=== PATIENT | female | born 1965 | race Two or more races ===

== ENCOUNTER 2019-01-01 01:22 | Emergency (ER) | payer OTHER ==
[2019-01-01] MEDS ORDERED: Ketorolac 30 MG/ML SDV ONE (01:54)
[2019-01-01] MEDS ORDERED: HYDROmorphone 1 MG/ML Syringe ONE (01:54)
[2019-01-01] MEDS ORDERED: Ondansetron 4 MG/2 ML SDV ONE (01:54)
--- NOTE | 2019-01-01 01:55 | EDM.PDOC ---
ED HPI GENERAL MEDICAL PROBLEM - General Chief Complaint: Abdominal Pain Stated Complaint: GALL BLADDER PAIN Time Seen by Provider: 01/01/19 01:49 - History of Present Illness INITIAL COMMENTS - FREE TEXT/NARRATIVE: HISTORY AND PHYSICAL: History of present illness: Patient 53-year-old [place] female with history of cholelithiasis and biliary colic presents with a concern of right upper quadrant pain after meal tonight. She's been diagnosed prior with ultrasound in [place] and was told that she would need surgery. She denies fever chills states pain is improved since arrival Review of systems: As per history of present illness and below otherwise all systems reviewed and negative. Past medical history: As per history of present illness and as reviewed below otherwise noncontributory. Surgical history: As per history of present illness and as reviewed below otherwise noncontributory. Social history: No reported history of drug or alcohol abuse. Family history: As per history of present illness and as reviewed below otherwise noncontributory. Physical exam: HEENT: Atraumatic, normocephalic, pupils reactive, negative for conjunctival pallor or scleral icterus, mucous membranes moist, throat clear, neck supple, nontender, trachea midline. Lungs: Clear to auscultation, breath sounds equal bilaterally, chest nontender. Heart: S1S2, regular, negative for clicks, rubs, or JVD. Abdomen: Soft, nondistended, tenderness in the right upper quadrant to deep palpation no rebound or guarding. Negative for masses or hepatosplenomegaly. Negative for costovertebral tenderness. Pelvis: Stable nontender. Genitourinary: Deferred. Rectal: Deferred. Extremities: Atraumatic, negative for cords or calf pain. Neurovascular unremarkable. Neuro: Awake, alert, oriented. Cranial nerves II through XII unremarkable. Cerebellum unremarkable. Motor and sensory unremarkable throughout. Exam nonfocal. Diagnostics: CBC CMP UA ultrasound right upper quadrant Therapeutics: Saline 1 L bolus Toradol 30 mg IV Zofran 4 mg IV Dilaudid 1 mg IV when necessary Impression: #1 cholelithiasis with biliary colic Definitive disposition and diagnosis as appropriate pending reevaluation and review of above. Right Upper Abdomen Pain Score (Numeric/FACES): 10 - Related Data Allergies Allergy/AdvReac Type Severity Reaction Status Date / Time No Known Allergies Allergy Verified 01/01/19 01:47 Home Meds: Home Meds . [No Known Home Meds] 01/01/19 [History] ED ROS GENERAL - Review of Systems Review Of Systems: ROS reveals no pertinent complaints other than HPI. ED EXAM, GENERAL - Physical Exam Exam: See Below (Dictation) Course - Vital Signs Last Recorded V/S: Last Vital Signs Temp 36.6 C 01/01/19 01:41 Pulse 98 01/01/19 01:41 Resp BP 131/95 H 01/01/19 01:41 Pulse Ox 97 01/01/19 01:41 - Orders/Labs/Meds Orders: Active Orders 24 hr Category Date Time Status HYDROmorphone [Dilaudid] Med 01/01/19 01:59 Active 1 mg IVPUSH Q1H PRN Saline Lock Insert [OM.PC] Stat Oth 01/01/19 01:59 Ordered Medication Orders Hydromorphone HCl (Dilaudid) 1 mg IVPUSH Q1H PRN PRN Reason: Pain Last Admin: 01/01/19 02:07 Dose: 1 mg Labs: Laboratory Tests 01/01/19 01/01/19 01/01/19 Range/Units 01:36 01:45 01:45 WBC 9.99 (4.0-11.0) K/uL RBC 4.31 (4.30-5.90) M/uL Hgb 13.4 (12.0-16.0) g/dL Hct 38.8 (36.0-46.0) % MCV 90.0 (80.0-98.0) fL MCH 31.1 (27.0-32.0) pg MCHC 34.5 (31.0-37.0) g/dL RDW Std Deviation 41.9 (28.0-62.0) fl RDW Coeff of Perri 13 (11.0-15.0) % Plt Count 288 (150-400) K/uL MPV 10.60 (7.40-12.00) fL Nucleated RBC % 0.0 /100WBC Nucleated RBCs # 0 K/uL Sodium 135 L (136-145) mmol/L Potassium 3.0 L (3.5-5.1) mmol/L Chloride 96 L (98-107) mmol/L Carbon Dioxide 25.2 (21.0-32.0) mmol/L BUN 10 (7.0-18.0) mg/dL Creatinine 1.1 H (0.6-1.0) mg/dL Est Cr Clr Drug Dosing TNP Estimated GFR (MDRD) 52.2 ml/min Glucose 110 H (74-106) mg/dL Calcium 9.1 (8.5-10.1) mg/dL Total Bilirubin 0.7 (0.2-1.0) mg/dL AST 20 (15-37) IU/L ALT 28 (14-63) IU/L Alkaline Phosphatase 103 (46-116) U/L Total Protein 8.4 H (6.4-8.2) g/dL Albumin 3.6 (3.4-5.0) g/dL Globulin 4.8 H (2.6-4.0) g/dL Albumin/Globulin Ratio 0.8 L (0.9-1.6) Urine Color YELLOW Urine Appearance SLT CLOUDY Urine pH 6.0 (5.0-8.0) Ur Specific [place] <= 1.005 (1.001-1.035) Urine Protein NEGATIVE (NEGATIVE) mg/dL Urine Glucose (UA) NEGATIVE (NEGATIVE) mg/dL Urine Ketones NEGATIVE (NEGATIVE) mg/dL Urine Occult Blood SMALL H (NEGATIVE) Urine Nitrite NEGATIVE (NEGATIVE) Urine Bilirubin NEGATIVE (NEGATIVE) Urine Urobilinogen 0.2 (<2.0) EU/dL Ur Leukocyte Esterase NEGATIVE (NEGATIVE) Urine RBC 1-3 (0-2/HPF) Urine WBC 0-2 (0-5/HPF) Ur Epithelial Cells FEW (NONE-FEW) Urine Bacteria RARE (NEGATIVE) Meds: Medications Generic Name Dose Route Start Last Admin Trade Name Freq PRN Reason Stop Dose Admin Hydromorphone HCl 1 mg 01/01/19 01:59 01/01/19 02:07 Dilaudid IVPUSH 1 mg Q1H PRN Administration Pain Discontinued Medications Generic Name Dose Route Start Last Admin Trade Name Freq PRN Reason Stop Dose Admin Hydromorphone HCl Confirm 01/01/19 01:54 Dilaudid Administered 01/01/19 01:55 Dose 1 mg .ROUTE .STK-MED ONE Sodium Chloride 1,000 mls @ 999 mls/hr 01/01/19 01:59 01/01/19 02:05 Normal Saline IV 01/01/19 02:59 999 mls/hr .Bolus ONE Administration Ketorolac Tromethamine Confirm 01/01/19 01:54 Toradol Administered 01/01/19 01:55 Dose 30 mg .ROUTE .STK-MED ONE Ketorolac Tromethamine 30 mg 01/01/19 01:59 01/01/19 02:04 Toradol IVPUSH 01/01/19 02:00 30 mg ONETIME ONE Administration Ondansetron HCl Confirm 01/01/19 01:54 Zofran Administered 01/01/19 01:55 Dose 4 mg .ROUTE .STK-MED ONE Ondansetron HCl 4 mg 01/01/19 01:59 01/01/19 02:05 Zofran IVPUSH 01/01/19 02:00 4 mg ONETIME ONE Administration Departure - Departure Time of Disposition: 03:43 Disposition: Home, Self-Care 01 Condition: Good Clinical Impression: Cholelithiasis, Biliary colic - Discharge Information Referrals: Nicolette Garzon NP [Primary Care Provider] - Forms: ED Department Discharge Additional Instructions: The following information is given to patients seen in the emergency department who are being discharged to home. This information is to outline your options for follow-up care. We provide all patients seen in our emergency department with a follow-up referral. The need for follow-up, as well as the timing and circumstances, are variable depending upon the specifics of your emergency department visit. If you don't have a primary care physician on staff, we will provide you with a referral. We always advise you to contact your personal physician following an emergency department visit to inform them of the circumstance of the visit and for follow-up with them and/or the need for any referrals to a consulting specialist. The emergency department will also refer you to a specialist when appropriate. This referral assures that you have the opportunity for followup care with a specialist. All of these measure are taken in an effort to provide you with optimal care, which includes your followup. Under all circumstances we always encourage you to contact your private physician who remains a resource for coordinating your care. When calling for followup care, please make the office aware that this follow-up is from your recent emergency room visit. If for any reason you are refused follow-up, please contact the [facility] emergency department at and asked to speak to the emergency department charge nurse. [facility] - General Surgery Professional Building [address] [place] [address], [address] [place] [address] Follow-up Gen. surgery of both call for appointment hydrocodone Zofran as prescribed dietary considerations as discussed and return as needed as discussed - My Orders Last 24 Hours: My Active Orders 01/01/19 01:59 HYDROmorphone [Dilaudid] 1 mg IVPUSH Q1H PRN Saline Lock Insert [OM.PC] Stat - Assessment/Plan Last 24 Hours: My Active Orders 01/01/19 01:59 HYDROmorphone [Dilaudid] 1 mg IVPUSH Q1H PRN Saline Lock Insert [OM.PC] Stat
[2019-01-01] MEDS ORDERED: Sodium Chloride 0.9% 1,000 ML IV ONE (01:59)
[2019-01-01] MEDS ORDERED: Ketorolac 30 MG/ML SDV IVPUSH ONE (01:59)
[2019-01-01] MEDS ORDERED: Ondansetron 4 MG/2 ML SDV IVPUSH ONE (01:59)
[2019-01-01] MEDS ORDERED: HYDROmorphone 1 MG/ML Syringe IVPUSH PRN (01:59)
[2019-01-01 02:21] LABS: BLOOD UREA NITROGEN,BUN 10 mg/dL (7.0-18.0); CARBON DIOXIDE,CO2 25.2 mmol/L (21.0-32.0); CHLORIDE,CL 96 mmol/L (98-107); GLUCOSE RANDOM 110 mg/dL (74-106); SODIUM,NA 135 mmol/L (136-145)
--- NOTE | 2019-01-01 03:17 | US ---
INDICATION: Right upper quadrant pain TECHNIQUE: Ultrasound abdomen limited. Sonographic images of the right upper quadrant were obtained using benitez-scale and color Doppler images. COMPARISON: None FINDINGS: Liver: Normal in size and echotexture. No masses. No intrahepatic biliary dilatation. Gallbladder: Cholelithiasis. Normal wall thickness. No pericholecystic fluid. Sonographic Booth`s sign is positive. Common bile duct: 3 mm. Pancreas: Normal. Right kidney: 9.4 cm. Normal echotexture and cortex. No masses, stones, or hydronephrosis. Vasculature: Proximal abdominal aorta and IVC are normal. IMPRESSION: Cholelithiasis with sonographic positive Booth`s sign. Findings could represent for acute cholecystitis. There is no gallbladder wall thickening. Dictated by Roxana Barnes MD @ Jan 01 2019 3:13AM Signed by Dr. Roxana Barnes @ Jan 01 2019 3:16AM
== END 2019-01-01 04:16 | disposition home or self-care (01) ==
LOC: MW.ED 01:22
DX: K80.70 Calculus of gallbladder and bile duct without cholecystitis without obstruction (principal)
CPT/HCPCS: 36415; 76705; 80053; 81001; 85027; 96361; 96374; 96375; 99284; J1170; J1885; J2405; J7040

== ENCOUNTER 2019-01-09 06:31 | Day surgery (SDC) | payer OTHER ==
[~2019-01-09 06:31] MED LIST: Lactated Ringers 1,000 ML IV SCH; cefOXitin 2 GM in Premix Bag 1 BAG IV ONE
[2019-01-09] MEDS ORDERED: fentaNYL 100 MCG/2 ML SDV IVPUSH PRN (07:01)
[2019-01-09] MEDS ORDERED: Scopolamine 1.5 MG Transdermal Patch TRDERM PRN (07:01)
--- NOTE | 2019-01-09 07:04 | PCM.PREANE ---
Preanesthetic Assessment - Anesthesia/Transfusion/Family Hx Anesthesia History: Prior Anesthesia Without Reaction Family History of Anesthesia Reaction: No Transfusion History: Prior Transfusion Without Reaction Intubation History: Unknown - Review of Systems General: No Symptoms Pulmonary: No Symptoms Cardiovascular: No Symptoms Gastrointestinal: Abdominal Pain Neurological: No Symptoms Other: Reports: None - Physical Assessment Vital Signs: Last Vital Signs Temp 36.1 C 01/09/19 06:59 Pulse 56 L 01/09/19 06:59 Resp 16 01/09/19 06:59 BP 134/56 L 01/09/19 06:59 Pulse Ox 97 01/09/19 06:59 Height: 5 ft 1 in Weight: 69.853 kg ASA Class: 2 Mental Status: Alert & Oriented x3 Airway Class: Mallampati = 1 Dentition: Reports: Normal Dentition Thyro-Mental Finger Breadths: 3 Mouth Opening Finger Breadths: 3 ROM/Head Extension: Full Lungs: Clear to Auscultation, Normal Respiratory Effort Cardiovascular: Regular Rate, Regular Rhythm - Allergies Allergies/Adverse Reactions: Allergies Allergy/AdvReac Type Severity Reaction Status Date / Time hydromorphone [From Dilaudid] Allergy Chest Verified 01/04/19 13:04 Presssure - Blood Blood Available: No - Anesthesia Plan Pre-Op Medication Ordered: None - Acknowledgements Anesthesia Type Planned: General Anesthesia Pt an Appropriate Candidate for the Planned Anesthesia: Yes Alternatives and Risks of Anesthesia Discussed w Pt/Guardian: Yes Pt/Guardian Understands and Agrees with Anesthesia Plan: Yes PreAnesthesia Questionnaire HEENT History: Reports: Other (See Below) Other HEENT History: wears glasses Cardiovascular History: Reports: Hypertension Respiratory History: Reports: None Gastrointestinal History: Reports: GERD Musculoskeletal History: Reports: None Neurological History: Reports: None Psychiatric History: Reports: None Endocrine/Metabolic History: Reports: None Hematologic History: Reports: Blood Transfusion(s) Immunologic History: Reports: None Oncologic (Cancer) History: Reports: None Dermatologic History: Reports: Other (See Below) Other Dermatologic History: Rosacea - Infectious Disease History Infectious Disease History: Reports: None - Past Surgical History Female Surgical History: Reports: Breast Biopsy (excisional), Hysterectomy - SUBSTANCE USE Smoking Status *Q: Never Smoker Recreational Drug Use History: No - HOME MEDS Home Medications: Home Meds Atenolol 50 mg PO QAM 01/04/19 [History] Metoclopramide HCl 20 drop PO TIDMEALS 01/04/19 [History] hydroCHLOROthiazide [Hydrochlorothiazide] 25 mg PO QAM 01/04/19 [History] raNITIdine HCl [Zantac] 150 mg PO BEDTIME 01/04/19 [History] - CURRENT (IN HOUSE) MEDS Current Meds: Current Medications Fentanyl (Sublimaze) 50 - 100 mcg IVPUSH Q5M PRN PRN Reason: Pain (severe 7-10) Lactated Ringer's (Ringers, Lactated) 1,000 mls @ 125 mls/hr IV ASDIRECTED YANNI Last Admin: 01/09/19 07:00 Dose: 125 mls/hr Scopolamine (Transderm-Scop) 1.5 mg TRDERM Q72H PRN PRN Reason: Nausea Discontinued Medications Cefoxitin Sodium 2 gm/ Premix 50 mls @ 100 mls/hr IV ONETIME ONE Stop: 01/09/19 06:29
[2019-01-09] MEDS ORDERED: Propofol 200 MG/20 ML SDV ONE (07:23)
[2019-01-09] MEDS ORDERED: fentaNYL 250 MCG/5 ML SDV ONE (07:23)
[2019-01-09] MEDS ORDERED: Midazolam 1 MG/ML 2 ML SDV ONE (07:23)
[2019-01-09] MEDS ORDERED: Neostigmine Methylsulfate 1 MG/ML 5 ML Syringe ONE (07:25)
[2019-01-09] MEDS ORDERED: Rocuronium 100 MG/10 ML Syringe ONE (07:25)
[2019-01-09] MEDS ORDERED: Ondansetron 4 MG/2 ML SDV ONE (07:25)
[2019-01-09] MEDS ORDERED: Glycopyrrolate 0.2 MG/ML SDV ONE (07:25)
[2019-01-09] MEDS ORDERED: Ketorolac 30 MG/ML SDV ONE (07:25)
[2019-01-09] MEDS ORDERED: Lidocaine 2% 5 ML SDV ONE (07:25)
[2019-01-09] MEDS ORDERED: Dexamethasone 4 MG/ML 5 ML MDV ONE (07:25)
[2019-01-09] MEDS ORDERED: Bupivacaine 0.5% 30 ML SDV ONE (07:27)
[2019-01-09] MEDS ORDERED: ceFAZolin 1 GM Vial ONE (07:27)
[2019-01-09] MEDS ORDERED: Sodium Chloride 0.9% 20 ML ONE (07:40)
[2019-01-09] MEDS ORDERED: cefOXitin 1 GM Vial ONE (07:40)
[2019-01-09] MEDS ORDERED: Desflurane 240 ML Bottle ONE (07:44)
[2019-01-09] MEDS ORDERED: Phenylephrine/Normal Saline 100 MCG/ML 10 ML Syringe ONE (08:11)
[2019-01-09] MEDS ORDERED: Morphine 10 MG/ML Syringe IVPUSH PRN (09:25)
[2019-01-09] MEDS ORDERED: Acetaminophen/Codeine 300-30 MG Tab PO PRN (09:25)
--- NOTE | 2019-01-09 09:28 | PCM.OPNOTE ---
- General Post-Op/Procedure Note Date of Surgery/Procedure: 01/09/19 Operative Procedure(s): Laparoscopic cholecystectomy Pre Op Diagnosis: Cholelithiasis Post-Op Diagnosis: Cholelithiasis Anesthesia Technique: General ET Tube (ASA II) Primary Surgeon: Jaime Potter Geophysicist: Mónica Julien Fluid Replacement, Intraop: 1,200 Output, Urine Amount: 100 EBL in mLs: 10 Condition: Good Free Text/Narrative:: DICTATION [id number] CPT CODE 61226
[2019-01-09] MEDS ORDERED: Lactated Ringers 1,000 ML IV SCH (09:30)
--- NOTE | 2019-01-09 10:01 | PCM.POSTAN ---
POST ANESTHESIA ASSESSMENT - MENTAL STATUS Mental Status: Alert, Oriented - VITAL SIGNS Vital Signs: Last Vital Signs Temp 36.3 C 01/09/19 09:19 Pulse 68 01/09/19 09:39 Resp 10 L 01/09/19 09:39 BP 124/73 01/09/19 09:39 Pulse Ox 97 01/09/19 09:39 - RESPIRATORY Respiratory Status: Respiratory Rate WNL, Airway Patent, O2 Saturation Stable - CARDIOVASCULAR CV Status: Pulse Rate WNL, Blood Pressure Stable - GASTROINTESTINAL GI Status: No Symptoms - PAIN Pain Score: 0 - POST OP HYDRATION Hydration Status: Adequate & Stable - OBSERVATIONS Free Text/Narrative:: No anesthesia problems
--- NOTE | 2019-01-09 11:42 | PCM48HPAN ---
Post Anesthesia Note - EVALUATION WITHIN 48HRS OF ANESTHETIC Vital Signs in Normal Range: Yes Patient Participated in Evaluation: Yes Respiratory Function Stable: Yes Airway Patent: Yes Cardiovascular Function Stable: Yes Hydration Status Stable: Yes Pain Control Satisfactory: Yes Nausea and Vomiting Control Satisfactory: Yes Mental Status Recovered: Yes Vital Signs: Last Vital Signs Temp 36.3 C 01/09/19 09:45 Pulse 52 L 01/09/19 10:30 Resp 16 01/09/19 10:30 BP 116/60 01/09/19 10:30 Pulse Ox 97 01/09/19 10:30 - COMMENTS/OBSERVATIONS Free Text/Narrative:: no anesthesia problems
--- NOTE | 2019-01-09 13:32 | OR ---
SURGEON: Jaime Potter M.D. DATE OF PROCEDURE: 01/09/2019 OPERATION PERFORMED: Laparoscopic cholecystectomy. PRIMARY SURGEON: Jaime Potter MD. STOCK CLERK SELF [employer]ICE STORE: butcher assistant: GORDO Dunn, dietitian assistant student. ANESTHESIA: General endotracheal. ASA CLASSIFICATION: II. PREOPERATIVE DIAGNOSIS: Cholelithiasis. POSTOPERATIVE DIAGNOSIS: Cholelithiasis. ESTIMATED BLOOD LOSS: 10 mL. INTRAOPERATIVE FLUID REPLACEMENT: 1200 mL of crystalloid. INTRAOPERATIVE URINARY OUTPUT: 100 mL. DESCRIPTION OF PROCEDURE: The patient was taken to the operating room and placed on the operating table in the supine position. Time-out was called for appropriate identification of the patient and procedure. Thigh-high TEDs and sequential compression boots were placed. Following satisfactory attainment of general endotracheal anesthesia, a Pisano catheter was placed in the patient's urinary bladder. The abdomen was prepped with DuraPrep solution and sterile drapes were applied. The skin below the umbilicus was infiltrated with 0.5% Marcaine solution. A small skin incision was made and hemostasis obtained with the use of electrocautery. The Veress needle was introduced into the peritoneal cavity. Saline drop test was positive. Carbon dioxide pneumoperitoneum was established with the relief set at 13 cm of water. Once a satisfactory pneumoperitoneum was established, 5 mm camera and port were placed through the infraumbilical incision. Under camera vision, 12 mm subxiphoid, 5 mm midclavicular, and 5 mm anterior axillary ports were placed. Each incision had preemptively been infiltrated with 0.5% Marcaine solution. The patient was now positioned with her feet down and rolled to the left. Under camera vision, all trocars had been placed. Hemostasis at each of the incisions had been obtained with the use of electrocautery. The gallbladder was grasped the cholecystohepatic triangle was dissected free. The cystic artery was anterior and this was hemoclipped proximally and distally before division. The cystic duct appeared quite short. However, with gentle dissection, we were able to get an adequate length of cystic duct as well as obtain the appropriate critical view, making sure that there was nothing behind the cystic duct. The common duct did bow over and care was taken to stay well away from this. The cystic duct was doubly clipped proximally with a single clip on the gallbladder side. The gallbladder was then dissected away from its bed using electrocautery. Some bile was spilled and this was all aspirated. A few small stones were also spilled and these were all retrieved. Once the gallbladder was amputated, this was promptly placed in an Endo Catch and maintained in situ. The bed of the gallbladder was inspected and minimal oozing was noted. No bile leak was noted. The bed of the gallbladder was then irrigated with sterile saline solution and all fluid aspirated. Surgicel was placed into the bed of the gallbladder. The right hemidiaphragm was irrigated with 250 mL of saline with 20 mL of 0.5% Marcaine solution. That fluid was left in place. The Endo Catch containing gallbladder and 12 mm port were removed under camera vision. The 5 mm anterior axillary and midclavicular ports were removed under camera vision and finally the infraumbilical camera and port were removed. Wounds were inspected for hemostasis and no bleeding was noted. The subxiphoid and infraumbilical incisions were closed in 2 layers approximating the subcutaneous tissue with 3-0 Vicryl and the skin with subcuticular 4-0 Monocryl. The anterior axillary and midclavicular incisions were closed with subcuticular 4-0 Monocryl. All incisions were Steri-Stripped and dressed with sterile Tegaderm pads. Pisano catheter was removed prior to emergence from anesthesia. Following emergence from anesthesia and extubation, the patient was taken to recovery room in satisfactory condition. THANH LÓPEZ /[id number]
== END 2019-01-09 12:00 | disposition home or self-care (01) ==
LOC: MW.SDS 06:31
PROVIDERS: ATTEND Surgery
DX: K80.10 Calculus of gallbladder with chronic cholecystitis without obstruction (principal); I10 Essential (primary) hypertension; K21.9 Gastro-esophageal reflux disease without esophagitis; Z88.5 Allergy status to narcotic agent; Z79.899 Other long term (current) drug therapy
CPT/HCPCS: 47562; A9270; J0694; J1100; J1885; J2001; J2250; J2270; J2370; J2405; J2704; J3010; J3490; J7120; 88304; J0690